=== PATIENT | female | born 1935 | race Hispanic/Latino ===

== ENCOUNTER 2017-04-18 18:46 | Inpatient (IN) | payer MEDICAID, MEDICARE ==
[2017-04-18 19:32] LABS: Eosinophils % (Auto) 1.1 % (0.0-4.3); Hematocrit 36.8 % (30.3-42.9); Hemoglobin 11.7 gm/dl (10.1-14.3); Mean Corpuscular HGB Conc 32 % (30-34); Mean Corpuscular Hemoglobin 26 pg (28-32); Mean Corpuscular Volume 83 fl (79-97); Platelet Count 466 K/mm3 (140-440); Red Blood Count 4.45 M/mm3 (3.65-5.03); Red Cell Distribution Width 18.6 % (13.2-15.2); White Blood Count 7.6 K/mm3 (4.5-11.0)
[2017-04-18 20:04] LABS: Anion Gap 20 mmol/L; BUN/Creatinine Ratio 20; Blood Urea Nitrogen 8 mg/dL (7-17); Calcium 9.5 mg/dL (8.4-10.2); Carbon Dioxide 27 mmol/L (22-30); Chloride 100.7 mmol/L (98-107); Glucose 114 mg/dL (65-100); Sodium 144 mmol/L (137-145)
[2017-04-18] MEDS ORDERED: ANTIVERT PO ONE (20:38)
--- NOTE | 2017-04-18 20:43 | Emergency Department Report ---
HPI - General Chief Complaint: Dizziness Time Seen by Provider: 04/18/17 20:30 - HPI HPI: Room 4 The patient is an 81-year-old female presenting with a chief complaint of dizziness. The patient states she came to the emergency department because her head has been "swimming" constantly for approximately one week. The patient states she falls down every time she attempts to get up. Patient lives with her son who is currently not present. Patient denies any history of headache, nausea/vomiting, fever or chest pain. When asked how she is feeling now the patient apply she feels "awful" because her head is "swimming." The patient has not had any previous episodes of same Location: Head Duration: 1 week Quality: Dizziness Severity: Moderate Modifying factors: Standing up leads to falling Context: [see above] Mode of transportation: [not driving] ED Past Medical Hx - Past Medical History Previous Medical History?: Yes Hx Hypertension: Yes - Surgical History Past Surgical History?: No - Family History Family history: no significant - Social History Smoking Status: Current Every Day Smoker Substance Use Type: None ED Review of Systems ROS: Stated complaint: DIZZY Other details as noted in HPI Comment: All other systems reviewed and negative Constitutional: denies: chills, fever Eyes: denies: eye pain, eye discharge, vision change ENT: denies: ear pain, throat pain Respiratory: denies: cough, shortness of breath, wheezing Cardiovascular: denies: chest pain, palpitations Endocrine: no symptoms reported Gastrointestinal: denies: abdominal pain, nausea, vomiting, diarrhea Genitourinary: denies: urgency, dysuria, discharge Musculoskeletal: denies: back pain, joint swelling, arthralgia Skin: denies: rash, lesions Neurological: vertigo. denies: headache Psychiatric: denies: anxiety, depression Hematological/Lymphatic: denies: easy bleeding, easy bruising Physical Exam - Physical Exam Vital Signs: Vital Signs 04/18/17 04/18/17 18:51 20:17 Temperature 98 F 97.8 F Pulse Rate 70 64 Respiratory 16 17 Rate Blood Pressure 202/85 Blood Pressure 124/105 [Left] O2 Sat by Pulse 96 97 Oximetry Physical Exam: GENERAL: The patient is well-developed well-nourished female lying on stretcher appearing to be in acute distress. [] HEENT: Normocephalic. Atraumatic. Extraocular motions are intact. Patient has moist mucous membranes. No nystagmus noted NECK: Supple. Trachea midline CHEST/LUNGS: Clear to auscultation. There is no respiratory distress noted. HEART/CARDIOVASCULAR: Regular. There is no tachycardia. There is no gallop rub or murmur. ABDOMEN: Abdomen is soft, nontender. Patient has normal bowel sounds. There is no abdominal distention. SKIN: There is no rash. There is no edema. There is no diaphoresis. NEURO: The patient is awake, alert, and oriented. The patient is cooperative. The patient has no focal neurologic deficits. The patient has normal speech. Cranial nerves II through XII grossly intact, no drift, genetics teacher are plus/5 bilaterally. Moves all extremities well MUSCULOSKELETAL: There is no evidence of acute injury. ED Course Vital Signs 04/18/17 04/18/17 18:51 20:17 Temperature 98 F 97.8 F Pulse Rate 70 64 Respiratory 16 17 Rate Blood Pressure 202/85 Blood Pressure 124/105 [Left] O2 Sat by Pulse 96 97 Oximetry - Reevaluation(s) Reevaluation #1: 04/18/17 22:28 Patient states she feels unchanged ED Medical Decision Making - Lab Data Result diagrams: 04/18/17 19:21 04/18/17 19:21 Laboratory Tests 04/18/17 04/18/17 19:21 19:21 WBC 7.6 RBC 4.45 Hgb 11.7 Hct 36.8 MCV 83 MCH 26 L MCHC 32 RDW 18.6 H Plt Count 466 H Lymph % (Auto) 16.1 [place] % (Auto) 9.6 H Eos % (Auto) 1.1 Baso % (Auto) 1.0 Lymph # 1.2 [place] # 0.7 Eos # 0.1 Baso # 0.1 Seg Neutrophils % 72.2 H Seg Neutrophils # 5.5 Sodium 144 Potassium 4.0 Chloride 100.7 Carbon Dioxide 27 Anion Gap 20 BUN 8 Creatinine 0.4 L Estimated GFR > 60 BUN/Creatinine Ratio 20 Glucose 114 H Calcium 9.5 Troponin T < 0.010 - EKG Data -: EKG Interpreted by [place] EKG shows normal: sinus rhythm Rate: normal - EKG Data When compared to previous EKG there are: previous EKG unavailable Interpretation: other (PACs) - Radiology Data Radiology results: report reviewed (CT head), image reviewed (chest x-ray, CT head) interpreted by me: Chest x-ray-no focal infiltrate, no pneumothorax CT head (rubber radiologist)-no acute intracranial pathology seen. Mild acute right mastoiditis - Differential Diagnosis vertigo, ICH, dehydration, Critical care attestation.: If time is entered above; I have spent that time in minutes in the direct care of this critically ill patient, excluding procedure time. ED Disposition Clinical Impression: Vertigo, Mastoiditis Disposition: OP ADMIT IP TO THIS HOSP Is pt being admited?: Yes Does the pt Need Aspirin: Yes Condition: Fair Referrals: PRIMARY CARE, [Primary Care Provider] - 3-5 Days Time of Disposition: 22:28 (hospitalist paged)
[2017-04-18] MEDS ORDERED: NACL 0.9% 500 ML 500 ML IV ONE (21:24)
--- NOTE | 2017-04-18 21:41 | Cat Scan Report ---
FINAL REPORT PROCEDURE: CT HEAD/BRAIN WO CON TECHNIQUE: Computerized tomography of the head was performed without contrast material. HISTORY: dizziness, falls COMPARISON: No prior studies are available for comparison. FINDINGS: Skull and scalp: Normal. Paranasal sinuses: Mild fluid right mastoid consistent with mild right mastoiditis Ventricles and subarachnoid spaces: Normal. Cerebrum: No evidence of hemorrhage, acute infarction or mass . Cerebellum and brainstem: No evidence of hemorrhage, acute infarction or mass. Vasculature: Atherosclerosis Comments: Moderate diffuse atrophy with mild periventricular microischemic change and central lacunar infarct disease. Basal ganglia microcalcifications basal ganglia IMPRESSION: No acute intracranial pathology seen. Mild acute right mastoiditis
[2017-04-18] MEDS ORDERED: ASPIRIN PO ONE (22:29)
[2017-04-18] MEDS ORDERED: REGLAN PO PRN ×2 (23:05→23:32)
[2017-04-18] MEDS ORDERED: PHENERGAN PR PRN (23:05)
[2017-04-18] MEDS ORDERED: MILK OF MAGNESIA PO PRN (23:05)
[2017-04-18] MEDS ORDERED: TYLENOL PO PRN (23:05)
[2017-04-18] MEDS ORDERED: ZOFRAN IV PRN (23:05)
[2017-04-18] MEDS ORDERED: SODIUM CHLORIDE FLUSH SYRINGE 10 ML IV PRN (23:05)
[2017-04-18] MEDS ORDERED: DULCOLAX PR PRN (23:05)
--- NOTE | 2017-04-18 23:21 | History and Physical Report ---
History of Present Illness Date of examination: 04/18/17 Chief complaint: Dizziness History of present illness: 81-year-old female with past medical history significant for emphysema , hypertension, hypothyroidism presented to the emergency department complaining of her head is swimming for the last 2 weeks. For the last 4 days every time when she tried to walk she fell down. Whenever she would stand up she feels dizzy. She denied loss of consciousness. Didn't hit her head when she fell. Patient denied headache, seizure, focal weakness. In denied any difficulty of swallowing. REVIEW OF SYSTEMS: GENERAL: no weight change, no fatigue, no fever HEAD: no head ache EYES: no blurry vision, no acute visual loss EARS: no hearing loss, no discharge, no earache NOSE: no stuffiness, no sneezing, no discharge MOUTH, THROAT AND NECK: no bleeding gums, no sore throat, no swollen neck CARDIAC: no palpitations, no dyspnea on exertion, no orthopnea, no PND, no edema , no chest pain RESPIRATORY: no shortness of breath, no wheeze, no cough, no sputum, no hemoptysis, no asthma GI: no decreased appetite, no nausea, no vomiting, no dysphagia, no diarrhea, no constipation, no abdominal pain URINARY: no change in frequency, no urgency, no polyuria, no hematuria, no incontinence MUSCULOSKELETAL: no muscle weakness, no pain, no joint stiffness NEUROLOGIC: no loss of sensation/numbness, no tingling, no tremors HEMATOLOGIC: no anemia, no easy bruising SKIN: no rashes ENDOCRINE: no heat/cold intolerance, no polyuria, no polydipsia, no diabetes PSYCHIATRIC: no anxiety, no depression, no suicidal ideations Past History Past Medical History: hypertension, hypothyroidism Past Surgical History: No surgical history Social history: smoking (half pack per day), full code. denies: alcohol abuse, prescription drug abuse, IV drug use Family history: no significant family history Medications and Allergies Allergies Allergy/AdvReac Type Severity Reaction Status Date / Time No Known Allergies Allergy Verified 04/18/17 23:13 Home Medications Medication Instructions Recorded Confirmed Last Taken Type Amlodipine Besylate [Norvasc] 5 mg PO DAILY 04/18/17 04/18/17 Unknown History Levothyroxine [Synthroid] 25 mcg PO QAM 04/18/17 04/18/17 Unknown History Losartan Potassium 100 mg PO DAILY 04/18/17 04/18/17 Unknown History Active Meds: Active Medications Acetaminophen (Tylenol) 650 mg PO Q4H PRN PRN Reason: Pain, Mild (1-3) Albuterol/Ipratropium (Duoneb *Not For Prn Use*) 1 ampul IH Q6HRT [facility] Amlodipine Besylate (Norvasc) 5 mg PO DAILY [place] Bisacodyl (Dulcolax) 10 mg [place] QDAY PRN PRN Reason: Constipation Docusate Sodium (Colace) 100 mg PO BID [facility] Famotidine (Pepcid) 10 mg PO BID [facility] Heparin Sodium (Porcine) (Heparin) 5,000 unit SUB-Q Q8HR [place] Levothyroxine Sodium (Synthroid) 25 mcg PO QAM [place] Magnesium Hydroxide (Milk Of Magnesia) 30 ml PO Q4H PRN PRN Reason: Constipation Metoclopramide HCl (Reglan) 10 mg PO Q6H PRN PRN Reason: Nausea And Vomiting Miscellaneous Medication (Losartan Potassium [Losartan Potassium]) 100 mg PO DAILY [facility] Ondansetron HCl (Zofran) 4 mg IV Q8H PRN PRN Reason: N/V unrelieved by Reglan Promethazine HCl (Phenergan) 25 mg [place] Q6H PRN PRN Reason: Nausea And Vomiting Simvastatin (Zocor) 20 mg PO QHS [facility] Sodium Chloride (Sodium Chloride Flush Syringe 10 Ml) 10 ml INJ PRN PRN PRN Reason: LINE FLUSH Exam - Physical Exam Narrative exam: Not in cardiopulmonary distress. The patient appeared emaciated. Vital signs as documented. Head exam is unremarkable. No scleral icterus . Neck is without jugular venous distension, thyromegaly, or carotid bruits. Lungs are clear to auscultation. Cardiac exam reveals regular rate and Rhythm. First and second heart sounds normal. No murmurs, rubs or gallops. Abdominal exam reveals normal bowel sounds, no masses, no organomegaly and no aortic enlargement. Extremities are nonedematous and both femoral and pedal pulses are normal. CUSTOMER EXPERIENCE SPECIALIST: Alert and oriented 3. No focal weakness. - Constitutional Vitals: Temp Pulse Resp BP Pulse Ox 97.8 F 99 H 17 139/83 96 04/18/17 20:17 04/18/17 21:00 04/18/17 20:17 04/18/17 22:00 04/18/17 22:00 Results - Labs CBC & Chem 7: 04/18/17 19:21 04/18/17 19:21 Labs: Laboratory Last Values WBC 7.6 K/mm3 (4.5-11.0) 04/18/17 19:21 RBC 4.45 M/mm3 (3.65-5.03) 04/18/17 19:21 Hgb 11.7 gm/dl (10.1-14.3) 04/18/17 19:21 Hct 36.8 % (30.3-42.9) 04/18/17 19:21 MCV 83 fl (79-97) 04/18/17 19:21 MCH 26 pg (28-32) L 04/18/17 19:21 MCHC 32 % (30-34) 04/18/17 19:21 RDW 18.6 % (13.2-15.2) H 04/18/17 19:21 Plt Count 466 K/mm3 (140-440) H 04/18/17 19:21 Lymph % (Auto) 16.1 % (13.4-35.0) 04/18/17 19:21 [place] % (Auto) 9.6 % (0.0-7.3) H 04/18/17 19:21 Eos % (Auto) 1.1 % (0.0-4.3) 04/18/17 19:21 Baso % (Auto) 1.0 % (0.0-1.8) 04/18/17 19:21 Lymph # 1.2 K/mm3 (1.2-5.4) 04/18/17 19:21 Emanuel # 0.7 K/mm3 (0.0-0.8) 04/18/17 19:21 Eos # 0.1 K/mm3 (0.0-0.4) 04/18/17 19:21 Baso # 0.1 K/mm3 (0.0-0.1) 04/18/17 19:21 Seg Neutrophils % 72.2 % (40.0-70.0) H 04/18/17 19:21 Seg Neutrophils # 5.5 K/mm3 (1.8-7.7) 04/18/17 19:21 Sodium 144 mmol/L (137-145) 04/18/17 19:21 Potassium 4.0 mmol/L (3.6-5.0) 04/18/17 19:21 Chloride 100.7 mmol/L (98-107) 04/18/17 19:21 Carbon Dioxide 27 mmol/L (22-30) 04/18/17 19:21 Anion Gap 20 mmol/L 04/18/17 19:21 BUN 8 mg/dL (7-17) 04/18/17 19:21 Creatinine 0.4 mg/dL (0.7-1.2) L 04/18/17 19:21 Estimated GFR > 60 ml/min 04/18/17 19:21 BUN/Creatinine Ratio 20 % 04/18/17 19:21 Glucose 114 mg/dL (65-100) H 04/18/17 19:21 Calcium 9.5 mg/dL (8.4-10.2) 04/18/17 19:21 Troponin T < 0.010 ng/mL (0.00-0.029) 04/18/17 19:21 - Imaging and Cardiology CT Scan - head: report reviewed (mastoididtis) Assessment and Plan - Patient Problems (1) CVA (cerebral vascular accident) Current Visit: Yes Status: Suspected Qualifiers: CVA mechanism: C Laterality of affected vessel: unspecified Plan to address problem: Patient has vertigo and frequent fall CVA is possiblity and severe workup is placed Patient is on aspirin and statin (2) Generalized weakness Current Visit: Yes Status: Acute Plan to address problem: PT/ OT consulted (3) Malnutrition Current Visit: Yes Status: Acute Qualifiers: Malnutrition type: M Protein-calorie malnutrition severity: P Plan to address problem: Nutrition consult placed (4) Hypertension Current Visit: Yes Status: Acute Qualifiers: Hypertension type: H Plan to address problem: Resume home medications (5) Mastoiditis Current Visit: Yes Status: Acute Qualifiers: Laterality: L Plan to address problem: Supportive care (6) Vertigo Current Visit: Yes Status: Acute Plan to address problem: Meclizine PT (7) DVT prophylaxis Current Visit: Yes Status: Acute Plan to address problem: heparin (8) Emphysema of lung Current Visit: Yes Status: Chronic Qualifiers: Emphysema type: E Plan to address problem: Breathing treatment albuterol (9) Smoking 1/2 pack a day or less Current Visit: Yes Status: Acute Plan to address problem: Counselled about cessation >10 minutes
[2017-04-19] MEDS ORDERED: DUONEB *Not for PRN Use IH ONE (02:26)
[2017-04-19] MEDS: DUONEB *Not for PRN Use IH SCH ×5 (02:35→20:15)
[2017-04-19 04:50] LABS: Basophils % (Auto) 1.1 % (0.0-1.8); Eosinophils % (Auto) 1.7 % (0.0-4.3); Hematocrit 33.7 % (30.3-42.9); Hemoglobin 10.7 gm/dl (10.1-14.3); Mean Corpuscular HGB Conc 32 % (30-34); Mean Corpuscular Volume 81 fl (79-97); Platelet Count 419 K/mm3 (140-440); Red Blood Count 4.15 M/mm3 (3.65-5.03); Red Cell Distribution Width 18.5 % (13.2-15.2); White Blood Count 6.2 K/mm3 (4.5-11.0)
[2017-04-19 04:53] LABS: Mean Corpuscular Hemoglobin 26 pg (28-32)
[2017-04-19 05:16] LABS: Anion Gap 16 mmol/L; BUN/Creatinine Ratio 12; Blood Urea Nitrogen 6 mg/dL (7-17); Calcium 9.1 mg/dL (8.4-10.2); Carbon Dioxide 29 mmol/L (22-30); Chloride 102.4 mmol/L (98-107); Cholesterol 156 mg/dL (50-199); Glucose 97 mg/dL (65-100); HDL Cholesterol 42 mg/dL (40-59); LDL Cholesterol,Direct 81 mg/dL (50-130); Potassium 3.9 mmol/L (3.6-5.0); Sodium 143 mmol/L (137-145); Triglycerides 167 mg/dL (2-149)
[2017-04-19] MEDS ORDERED: HEPARIN ONE (06:32)
[2017-04-19] MEDS: HEPARIN SUB-Q SCH ×3 (06:40→22:36)
[2017-04-19] MEDS: SYNTHROID PO SCH (06:50)
--- NOTE | 2017-04-19 08:59 | XRay Report ---
CHEST 2 VIEWS INDICATION: Shortness of breath. COMPARISON: None similar at this institution. FINDINGS: PA and lateral chest radiographs demonstrate normal heart size. Moderate aortic atherosclerotic calcifications with prominent aortic knob, not entirely excluded subtle aneurysmal/pseudoaneurysmal. Approximately 6 cm hiatal hernia. Clear lungs without pleural effusions or CHF. Demineralized bones with mild to moderate S-shaped thoracolumbar scoliosis. Left humeral head axillary degenerative spur as well. CONCLUSION: Clear lungs with various other findings, including hiatal hernia, scoliosis and aortic knob radiographic appearance, as detailed above. Please also correlate clinically, with prior chest imaging if available, or further with contrasted chest CT, as appropriate. Thank you for the opportunity to participate in this patient's care.
[2017-04-19] MEDS ORDERED: NON-FORMULARY (Losartan Potassium [Losartan Potassium] 100 MG) PO SCH (10:00)
[2017-04-19] MEDS: NORVASC PO SCH (10:14)
[2017-04-19] MEDS: COLACE PO SCH ×2 (10:15→22:36)
[2017-04-19] MEDS: COZAAR PO SCH (10:54)
[2017-04-19] MEDS: PEPCID PO SCH ×2 (11:23→22:36)
--- NOTE | 2017-04-19 16:15 | Progress Note ---
Assessment and Plan (1) CVA (cerebral vascular accident) ASA, Statin, PT/OT. Neurocheck (2) Generalized weakness PT/ OT consulted (3) Malnutrition Nutrition consult placed (4) Hypertension Resume home medications (5) Mastoiditis Current Visit: Yes Status: Acute Qualifiers: Laterality: L Plan to address problem: Supportive care (6) Vertigo Meclizine PT (7) DVT prophylaxis heparin (8) Emphysema of lung Breathing treatment albuterol (9) Smoking 1/2 pack a day or less Counselled about cessation >10 minutes Subjective Date of service: 04/19/17 Principal diagnosis: generalized weakness, shortness of breath, malnutrition, vertigo Interval history: Patient is seen and examined. Laying in bed in no DISTRESS. Objective - Exam Narrative Exam: GEN: Well-developed well-nourished. ill-appearing HEENT: NC/AT, PERRL. No rhionorrhea NECK: Supple, no adenopathy, no thyromegaly, no JVD CVS/HEART: RRR, S1S2 normal. No R/M/G. Pulses present bilaterally CHEST/LUNGS: Symmetrical chest expansion, good air entry bilaterally, CTA Wero GI/Abdomen: Soft, NTND, good bowel sounds, no guarding or rebound /Bladder: No suprapubic tenderness, no CVA EXT: No c/c/e Skin: No obvious rash MSK: Spontaneous movement x 4 Neuro: A & O x 3. None focal seen moving all limbs Psych: Calm. No SI or HI - Constitutional Vitals: Vital Signs - 12hr 04/19/17 04/19/17 04/19/17 05:00 06:00 07:00 Temperature Pulse Rate 48 L 50 L 50 L Pulse Rate [ Anterior Bilateral Throughout] Respiratory 25 H 24 17 Rate Respiratory Rate [Anterior Bilateral Throughout] Blood Pressure 128/64 128/64 145/72 O2 Sat by Pulse 95 93 98 Oximetry 04/19/17 04/19/17 04/19/17 08:00 09:00 09:15 Temperature Pulse Rate 67 65 Pulse Rate [ 62 Anterior Bilateral Throughout] Respiratory 25 H 19 Rate Respiratory 20 Rate [Anterior Bilateral Throughout] Blood Pressure 138/80 111/81 O2 Sat by Pulse 95 96 Oximetry 04/19/17 04/19/17 04/19/17 09:25 10:00 10:14 Temperature Pulse Rate 54 L 60 Pulse Rate [ 62 Anterior Bilateral Throughout] Respiratory 26 H Rate Respiratory 18 Rate [Anterior Bilateral Throughout] Blood Pressure 152/70 152/70 O2 Sat by Pulse 97 Oximetry 04/19/17 04/19/17 04/19/17 10:54 11:00 11:40 Temperature Pulse Rate 60 64 66 Pulse Rate [ Anterior Bilateral Throughout] Respiratory 26 H 20 Rate Respiratory Rate [Anterior Bilateral Throughout] Blood Pressure 150/70 170/84 160/89 O2 Sat by Pulse Oximetry 04/19/17 04/19/17 04/19/17 12:59 13:38 13:48 Temperature 98.1 F Pulse Rate 63 Pulse Rate [ 60 72 Anterior Bilateral Throughout] Respiratory 18 Rate Respiratory 16 18 Rate [Anterior Bilateral Throughout] Blood Pressure 142/58 O2 Sat by Pulse 96 Oximetry General appearance: Present: no acute distress, well-nourished - EENT Eyes: PERRL, EOM intact - Neck Neck: supple, normal ROM - Respiratory Respiratory effort: normal Respiratory: bilateral: diminished - Cardiovascular Rhythm: regular Heart Sounds: Present: S1 & S2. Absent: gallop, rub Extremities: pulses intact, No edema, normal color, Full ROM - Gastrointestinal General gastrointestinal: Present: soft, non-tender, non-distended, normal bowel sounds - Integumentary Integumentary: clear, warm, dry - Musculoskeletal Musculoskeletal: 1, strength equal bilaterally - Neurologic Neurologic: moves all extremities - Psychiatric Psychiatric: memory intact, appropriate mood/affect, intact judgment & insight - Labs CBC & Chem 7: 04/19/17 04:35 04/19/17 04:35 Labs: Abnormal lab results 04/19/17 04/19/17 Range/Units 04:35 04:35 MCH 26 L (28-32) pg RDW 18.5 H (13.2-15.2) % [place] % (Auto) 11.3 H (0.0-7.3) % BUN 6 L (7-17) mg/dL Creatinine 0.5 L (0.7-1.2) mg/dL Triglycerides 167 H (2-149) mg/dL
--- NOTE | 2017-04-19 16:44 | Consultation ---
History of Present Illness - Reason for Consult Consult date: 04/19/17 STROKE - History of Present Illness SUSPECT THE BASIS OF THE VERTIGO IS SMALL LACUNAR STROKE DOUBT THE MASTOIDITIS IS BACTERIAL AND NOT LIKELY ACUTE INFECTION I SPOKE WITH DR. Lowe as we are making rounds recommend MRI AND GET PT TO SEE Past History Past Medical History: hypertension, hypothyroidism Past Surgical History: No surgical history Social history: smoking (half pack per day), full code. denies: alcohol abuse, prescription drug abuse, IV drug use Family history: no significant family history Medications and Allergies Allergies Allergy/AdvReac Type Severity Reaction Status Date / Time No Known Allergies Allergy Verified 04/18/17 23:13 Home Medications Medication Instructions Recorded Confirmed Last Taken Type Amlodipine Besylate [Norvasc] 5 mg PO DAILY 04/18/17 04/18/17 Unknown History Levothyroxine [Synthroid] 25 mcg PO QAM 04/18/17 04/18/17 Unknown History Losartan Potassium 100 mg PO DAILY 04/18/17 04/18/17 Unknown History Active Meds: Active Medications Acetaminophen (Tylenol) 650 mg PO Q4H PRN PRN Reason: Pain, Mild (1-3) Albuterol/Ipratropium (Duoneb *Not For Prn Use*) 1 ampul IH Q6HRT [facility] Last Admin: 04/19/17 13:38 Dose: 1 ampul Amlodipine Besylate (Norvasc) 5 mg PO DAILY [facility] Last Admin: 04/19/17 10:14 Dose: 5 mg Bisacodyl (Dulcolax) 10 mg [place] QDAY PRN PRN Reason: Constipation Docusate Sodium (Colace) 100 mg PO BID [facility] Last Admin: 04/19/17 10:15 Dose: 100 mg Famotidine (Pepcid) 10 mg PO BID [facility] Last Admin: 04/19/17 11:23 Dose: 10 mg Heparin Sodium (Porcine) (Heparin) 5,000 unit SUB-Q Q8HR [facility] Last Admin: 04/19/17 14:30 Dose: 5,000 unit Influenza Virus Vaccine Quadrival (Fluarix Quad [id number](36 Mos+)) 0.5 ml IM .ONCE ONE Stop: 04/20/17 12:01 Levothyroxine Sodium (Synthroid) 25 mcg PO QAM@0600 [facility] Last Admin: 04/19/17 06:50 Dose: 25 mcg Losartan Potassium (Cozaar) 100 mg PO QDAY [facility] Last Admin: 04/19/17 10:54 Dose: 100 mg Magnesium Hydroxide (Milk Of Magnesia) 30 ml PO Q4H PRN PRN Reason: Constipation Metoclopramide HCl (Reglan) 5 mg PO Q6H PRN PRN Reason: Nausea And Vomiting Ondansetron HCl (Zofran) 4 mg IV Q8H PRN PRN Reason: N/V unrelieved by Reglan Pneumococcal Polyvalent Vaccine (Pneumovax 23) 0.5 ml IM .ONCE ONE Stop: 04/20/17 12:01 Promethazine HCl (Phenergan) 25 mg [place] Q6H PRN PRN Reason: Nausea And Vomiting Simvastatin (Zocor) 20 mg PO QHS [facility] Sodium Chloride (Sodium Chloride Flush Syringe 10 Ml) 10 ml IV PRN PRN PRN Reason: LINE FLUSH Exam - Constitutional Vitals: Temp Pulse Resp BP Pulse Ox 98.1 F 72 18 142/58 96 04/19/17 12:59 04/19/17 13:48 04/19/17 13:48 04/19/17 12:59 04/19/17 12:59 Results - Labs CBC & Chem 7: 04/19/17 04:35 04/19/17 04:35 Labs: Abnormal lab results 04/19/17 04/19/17 Range/Units 04:35 04:35 MCH 26 L (28-32) pg RDW 18.5 H (13.2-15.2) % [place] % (Auto) 11.3 H (0.0-7.3) % BUN 6 L (7-17) mg/dL Creatinine 0.5 L (0.7-1.2) mg/dL Triglycerides 167 H (2-149) mg/dL
[2017-04-19] MEDS: ZOCOR PO SCH (22:36)
[2017-04-20] MEDS: DUONEB *Not for PRN Use IH SCH ×4 (02:08→19:24)
--- NOTE | 2017-04-20 05:19 | Consultation ---
HISTORY OF PRESENT ILLNESS: This is an 81-year-old female who is admitted to [facility] via the Emergency Room where she presented with a complaint of dizziness. Stated that she has swimmy sensation in her head, was falling down over time she stood up, so was unable to take care of her. She presents with a history of ____. Denied any hiccups, nausea, vomiting. The patient had no previous symptoms of being dizzy like this in the past. Her blood pressure was markedly elevated on admission up to 202/82. She had vertigo and mastoiditis. The patient's hematocrit was 36.8, glucose is 114, which was elevated. His sodium was 144. Since admission, the patient continues to complain of headaches, dizziness, and nausea. She states she has not felt this way before. I reviewed her CT scan of the head, which shows no intracranial pathology. She has a central lacunar infarct, marked ischemic changes in bilateral basal ganglia. Also mild fluid level in the right mastoid consisted with right mastoiditis. 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 IMPRESSION: Acute vertigo with evidence of possible mastoiditis. RECOMMENDATION: Will speak to Dr. Casanova about CT scan findings. We recommend getting a sedimentation rate and MRI scan of brain. JOB# [id number] MADDIE/NTS
[2017-04-20] MEDS: SYNTHROID PO SCH (06:25)
[2017-04-20] MEDS: HEPARIN SUB-Q SCH ×3 (06:26→21:51)
[2017-04-20] MEDS: COZAAR PO SCH (10:22)
[2017-04-20] MEDS: NORVASC PO SCH (10:24)
[2017-04-20] MEDS: COLACE PO SCH ×2 (10:24→21:50)
--- NOTE | 2017-04-20 11:48 | Magnetic Resonance Report ---
MRA HEAD WITHOUT CONTRAST INDICATION: Stroke. COMPARISON: 04/18/[address] FINDINGS: MRA of the head performed without intravenous contrast and demonstrates no evidence of flow-limiting stenosis, occlusion or vascular malformation. Approximately 5 mm left vertebral artery length distally appears somewhat prominent/dilated upto approximately 4 mm caliber before joining the right vertebral artery to form the basilar. Bilateral vertebral artery atherosclerotic calcifications with otherwise grossly normal CT appearance also noted previously. Please note that detection of aneurysms less than 5 mm is limited on this exam. CONCLUSION: Patent [place] of [place], as detailed above. Thank you for the opportunity to participate in this patient's care.
--- NOTE | 2017-04-20 11:48 | Magnetic Resonance Report ---
MRI BRAIN WITHOUT CONTRAST INDICATION: Stroke. COMPARISON: 04/18/[address] FINDINGS: Noncontrast multiplanar and multisequence MRI of the brain demonstrates approximately 9 mm periventricular focus of restricted diffusion in the left frontotemporal deep white matter, diffusion image 23. No other acute infarct, hemorrhage, mass effect or midline shift, though exam limited due to motion artifact. Symmetric, age-appropriate ventricles and sulci with mild periventricular and few white matter FLAIR and T2-weighted hyperintensities. No abnormal extra-axial masses or fluid collections. Normal major intracranial vascular flow voids. Normal posterior fossa with preserved basilar cisterns. Grossly normal eye globes. Mild right sphenoid sinusitis and right mastoiditis may again be noted. Grossly clear remainder imaged paranasal sinuses and left mastoid air cells. Normal midline structures without evidence of Chiari malformation. Jaw appears edentulous. CONCLUSION: 1. Approximately 9 mm left temporoparietal periventricular deep white matter acute infarct, as described. 2. Other findings, including age-appropriate atrophy, microvascular changes, mild sinusitis and right mastoiditis. Thank you for the opportunity to participate in this patient's care.
[2017-04-20] MEDS ORDERED: PNEUMOVAX 23 IM ONE (12:00)
[2017-04-20] MEDS ORDERED: Fluarix Quad 2017-2018(36 MOS+) IM ONE (12:00)
--- NOTE | 2017-04-20 14:19 | Progress Note ---
Assessment and Plan Assessment and plan: Pt is a 81 yo woman with a history of copd, hypertension, hypothyroidism and tobacco dependancy who presents with dizziness. CXR read as clear lungs, CT head showed no acute intracranial finding, mild acute right mastoiditis, TTE read as estimated EF 55-60%, diastolic dysfunction, mild mr, mild pulmonary hypertension. MRA of the brain read as patent [place], MRI of the brain read as approximate 9 mm left temporoparietal periventricular deep white matter acute infarct, age appropriate atrophy, microvascular changes, mild right sphenoid sinusitis and right mastoiditis. Patient was seen by neurology. PCP is Dr. Malathi Narayanan -Acute ischemic cerebral infarct: Treat with aspirin, statins and physical therapy -Accelerated hypertension: Low-salt diet and when necessary antihypertensive -Suspected moderate malnutrition, BMI 18: Consult dietitian -Tobacco dependency: Change Room Attendant stopping Full code Disposition: Continue inpatient care, possible placement or discharged tomorrow History Interval history: Patient was seen and examined. Follow-up on current diagnosis/dizziness which is improved. Overnight uneventful. Patient denies any chest pain, shortness breath, nausea/vomiting or severe headaches. Imaging, nursing note, chart, labs and old chart reviewed. Discussed with patient. 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, no dysmetria Neuro: CN 2-12 grossly intact, no new focal deficits Psych: calm - Constitutional Vitals: Temp Pulse Resp BP Pulse Ox 98.0 F 82 18 136/69 94 04/20/17 12:24 04/20/17 09:10 04/20/17 12:24 04/20/17 12:24 04/20/17 07:31 Results - Labs CBC & Chem 7: 04/19/17 04:35 04/19/17 04:35 Labs: Laboratory Last Values WBC 6.2 K/mm3 (4.5-11.0) 04/19/17 04:35 RBC 4.15 M/mm3 (3.65-5.03) 04/19/17 04:35 Hgb 10.7 gm/dl (10.1-14.3) 04/19/17 04:35 Hct 33.7 % (30.3-42.9) 04/19/17 04:35 MCV 81 fl (79-97) 04/19/17 04:35 MCH 26 pg (28-32) L 04/19/17 04:35 MCHC 32 % (30-34) 04/19/17 04:35 RDW 18.5 % (13.2-15.2) H 04/19/17 04:35 Plt Count 419 K/mm3 (140-440) 04/19/17 04:35 Lymph % (Auto) 22.0 % (13.4-35.0) 04/19/17 04:35 [place] % (Auto) 11.3 % (0.0-7.3) H 04/19/17 04:35 Eos % (Auto) 1.7 % (0.0-4.3) 04/19/17 04:35 Baso % (Auto) 1.1 % (0.0-1.8) 04/19/17 04:35 Lymph # 1.4 K/mm3 (1.2-5.4) 04/19/17 04:35 [place] # 0.7 K/mm3 (0.0-0.8) 04/19/17 04:35 Eos # 0.1 K/mm3 (0.0-0.4) 04/19/17 04:35 Baso # 0.1 K/mm3 (0.0-0.1) 04/19/17 04:35 Seg Neutrophils % 63.9 % (40.0-70.0) 04/19/17 04:35 Seg Neutrophils # 3.9 K/mm3 (1.8-7.7) 04/19/17 04:35 Sodium 143 mmol/L (137-145) 04/19/17 04:35 Potassium 3.9 mmol/L (3.6-5.0) 04/19/17 04:35 Chloride 102.4 mmol/L (98-107) 04/19/17 04:35 Carbon Dioxide 29 mmol/L (22-30) 04/19/17 04:35 Anion Gap 16 mmol/L 04/19/17 04:35 BUN 6 mg/dL (7-17) L 04/19/17 04:35 Creatinine 0.5 mg/dL (0.7-1.2) L 04/19/17 04:35 Estimated GFR > 60 ml/min 04/19/17 04:35 BUN/Creatinine Ratio 12 % 04/19/17 04:35 Glucose 97 mg/dL (65-100) 04/19/17 04:35 Calcium 9.1 mg/dL (8.4-10.2) 04/19/17 04:35 Troponin T < 0.010 ng/mL (0.00-0.029) 04/18/17 19:21 Triglycerides 167 mg/dL (2-149) H 04/19/17 04:35 Cholesterol 156 mg/dL (50-199) 04/19/17 04:35 LDL Cholesterol Direct 81 mg/dL (50-130) 04/19/17 04:35 HDL Cholesterol 42 mg/dL (40-59) 04/19/17 04:35 Cholesterol/HDL Ratio 3.71 % 04/19/17 04:35
[2017-04-20] MEDS: ZOCOR PO SCH (21:50)
[2017-04-20] MEDS: PEPCID PO SCH (21:51)
[2017-04-21] MEDS: DUONEB *Not for PRN Use IH SCH ×4 (01:24→19:36)
[2017-04-21] MEDS: HEPARIN SUB-Q SCH ×3 (05:53→21:40)
[2017-04-21] MEDS: SYNTHROID PO SCH (05:54)
[2017-04-21] MEDS ORDERED: TYLENOL PO PRN (07:08)
[2017-04-21] MEDS: ROCEPHIN/NS 1 GM/50 ML 1 GM/50 ML BAG IV SCH (10:36)
[2017-04-21] MEDS: PEPCID PO SCH ×2 (10:37→21:40)
[2017-04-21] MEDS: COLACE PO SCH ×2 (10:37→21:39)
[2017-04-21] MEDS: NORVASC PO SCH (10:38)
[2017-04-21] MEDS: COZAAR PO SCH (10:39)
--- NOTE | 2017-04-21 11:45 | Progress Note ---
Assessment and Plan Assessment and plan: Pt is a 81 yo woman with a history of copd, hypertension, hypothyroidism and tobacco dependancy who presents with dizziness. CXR read as clear lungs, CT head showed no acute intracranial finding, mild acute right mastoiditis, TTE read as estimated EF 55-60%, diastolic dysfunction, mild mr, mild pulmonary hypertension. MRA of the brain read as patent [place], MRI of the brain read as approximate 9 mm left temporoparietal periventricular deep white matter acute infarct, age appropriate atrophy, microvascular changes, mild right sphenoid sinusitis and right mastoiditis. Patient was seen by neurology. PCP is Dr. 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 Follow-up on current diagnosis/dizziness which is improved. Overnight uneventful. Patient denies any chest pain, shortness breath, nausea/vomiting or severe headaches. Imaging, nursing note, chart, labs and old chart reviewed. Discussed with patient. 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, no dysmetria Neuro: CN 2-12 grossly intact, no new focal deficits Psych: calm - Constitutional Vitals: Temp Pulse Resp BP Pulse Ox 99.2 F 79 18 140/68 92 04/21/17 08:01 04/21/17 10:39 04/21/17 08:58 04/21/17 10:39 10/21/17 08:01 Results - Labs CBC & Chem 7: 04/19/17 04:35 04/19/17 04:35 Labs: Laboratory Last Values WBC 6.2 K/mm3 (4.5-11.0) 04/19/17 04:35 RBC 4.15 M/mm3 (3.65-5.03) 04/19/17 04:35 Hgb 10.7 gm/dl (10.1-14.3) 04/19/17 04:35 Hct 33.7 % (30.3-42.9) 04/19/17 04:35 MCV 81 fl (79-97) 04/19/17 04:35 MCH 26 pg (28-32) L 04/19/17 04:35 MCHC 32 % (30-34) 04/19/17 04:35 RDW 18.5 % (13.2-15.2) H 04/19/17 04:35 Plt Count 419 K/mm3 (140-440) 04/19/17 04:35 Lymph % (Auto) 22.0 % (13.4-35.0) 04/19/17 04:35 [place] % (Auto) 11.3 % (0.0-7.3) H 04/19/17 04:35 Eos % (Auto) 1.7 % (0.0-4.3) 04/19/17 04:35 Baso % (Auto) 1.1 % (0.0-1.8) 04/19/17 04:35 Lymph # 1.4 K/mm3 (1.2-5.4) 04/19/17 04:35 [place] # 0.7 K/mm3 (0.0-0.8) 04/19/17 04:35 Eos # 0.1 K/mm3 (0.0-0.4) 04/19/17 04:35 Baso # 0.1 K/mm3 (0.0-0.1) 04/19/17 04:35 Seg Neutrophils % 63.9 % (40.0-70.0) 04/19/17 04:35 Seg Neutrophils # 3.9 K/mm3 (1.8-7.7) 04/19/17 04:35 Sodium 143 mmol/L (137-145) 04/19/17 04:35 Potassium 3.9 mmol/L (3.6-5.0) 04/19/17 04:35 Chloride 102.4 mmol/L (98-107) 04/19/17 04:35 Carbon Dioxide 29 mmol/L (22-30) 04/19/17 04:35 Anion Gap 16 mmol/L 04/19/17 04:35 BUN 6 mg/dL (7-17) L 04/19/17 04:35 Creatinine 0.5 mg/dL (0.7-1.2) L 04/19/17 04:35 Estimated GFR > 60 ml/min 04/19/17 04:35 BUN/Creatinine Ratio 12 % 04/19/17 04:35 Glucose 97 mg/dL (65-100) 04/19/17 04:35 Calcium 9.1 mg/dL (8.4-10.2) 04/19/17 04:35 Troponin T < 0.010 ng/mL (0.00-0.029) 04/18/17 19:21 Triglycerides 167 mg/dL (2-149) H 04/19/17 04:35 Cholesterol 156 mg/dL (50-199) 04/19/17 04:35 LDL Cholesterol Direct 81 mg/dL (50-130) 04/19/17 04:35 HDL Cholesterol 42 mg/dL (40-59) 04/19/17 04:35 Cholesterol/HDL Ratio 3.71 % 04/19/17 04:35
--- NOTE | 2017-04-21 11:55 | Consultation ---
History of Present Illness - Reason for Consult Consult date: 04/21/17 stroke - History of Present Illness the MRI and MRA were reviewed and there is acute left fronto parietal infarct likely small vessel disease this explains the period of not being responsive and the aphasia .... likely will need short term rehab I reviewed the MRI and it does not show evidence of mastoiditis of bacterial type vertigo is caused by the stroke not the sinus question Past History Past Medical History: hypertension, hypothyroidism Past Surgical History: No surgical history Social history: smoking (half pack per day), full code. denies: alcohol abuse, prescription drug abuse, IV drug use Family history: no significant family history Medications and Allergies Allergies Allergy/AdvReac Type Severity Reaction Status Date / Time No Known Allergies Allergy Verified 04/18/17 23:13 Home Medications Medication Instructions Recorded Confirmed Last Taken Type Amlodipine Besylate [Norvasc] 5 mg PO DAILY 04/18/17 04/18/17 Unknown History Levothyroxine [Synthroid] 25 mcg PO QAM 04/18/17 04/18/17 Unknown History Losartan Potassium 100 mg PO DAILY 04/18/17 04/18/17 Unknown History Active Meds: Active Medications Acetaminophen (Tylenol) 325 mg PO Q6H PRN PRN Reason: Pain, Mild (1-3) Albuterol/Ipratropium (Duoneb *Not For Prn Use*) 1 ampul IH Q6HRT [facility] Last Admin: 04/21/17 08:56 Dose: 1 ampul Amlodipine Besylate (Norvasc) 5 mg PO DAILY [facility] Last Admin: 04/21/17 10:38 Dose: 5 mg Bisacodyl (Dulcolax) 10 mg [place] QDAY PRN PRN Reason: Constipation Docusate Sodium (Colace) 100 mg PO BID [facility] Last Admin: 04/21/17 10:37 Dose: 100 mg Famotidine (Pepcid) 10 mg PO BID [facility] Last Admin: 04/21/17 10:37 Dose: 10 mg Heparin Sodium (Porcine) (Heparin) 5,000 unit SUB-Q Q8HR [facility] Last Admin: 04/21/17 05:53 Dose: 5,000 unit Ceftriaxone Sodium (Rocephin/Ns 1 Gm/50 Ml) 1 gm in 50 mls @ 100 mls/hr IV Q24HR [facility] PRN Reason: Protocol Last Admin: 04/21/17 10:36 Dose: 100 mls/hr Levothyroxine Sodium (Synthroid) 25 mcg PO QAM@0600 [facility] Last Admin: 04/21/17 05:54 Dose: 25 mcg Losartan Potassium (Cozaar) 100 mg PO QDAY [facility] Last Admin: 04/21/17 10:39 Dose: 100 mg Magnesium Hydroxide (Milk Of Magnesia) 30 ml PO Q4H PRN PRN Reason: Constipation Metoclopramide HCl (Reglan) 5 mg PO Q6H PRN PRN Reason: Nausea And Vomiting Ondansetron HCl (Zofran) 4 mg IV Q8H PRN PRN Reason: N/V unrelieved by Reglan Promethazine HCl (Phenergan) 25 mg [place] Q6H PRN PRN Reason: Nausea And Vomiting Simvastatin (Zocor) 20 mg PO QHS [facility] Last Admin: 04/20/17 21:50 Dose: 20 mg Sodium Chloride (Sodium Chloride Flush Syringe 10 Ml) 10 ml IV PRN PRN PRN Reason: LINE FLUSH Exam - Constitutional Vitals: Temp Pulse Resp BP Pulse Ox 99.2 F 79 18 140/68 92 04/21/17 08:01 04/21/17 10:39 04/21/17 08:58 04/21/17 10:39 04/21/17 08:01 Results - Labs CBC & Chem 7: 04/19/17 04:35 04/19/17 04:35
--- NOTE | 2017-04-21 13:22 | Consultation ---
History of Present Illness - Reason for Consult Consult date: 04/21/17 mastoiditis Requesting physician: WILLIAN GAGNON - History of Present Illness 81 year old female with history of emphysema, hypertension, hypothyroidism admitted on 04/20/17 due to a week history of dizziness and a sensation of head spinning. Patient denies any recent headaches, ear pain, cold symptoms. Patient denies any fever, chills, nausea, vomiting. Patient reports that she's been falling down during the last 4 days. She denies any injury to her head. Denies any loss of consciousness. In the emergency room, initial temperature was 98, heart rate 70, blood pressure 202/85. Initial white count 7.6. Hemoglobin 11.7. Creatinine 0.4. Chest x-ray was drawn and showed negative for consolidation however she was found to have high abdominal hernia and his scoliosis. CT of the head was unremarkable. MRI which showed left temporal positive bowel 30 ventricle right moderate infarct as well as mild sinusitis and right mastoiditis. Microbiology: none Current Antimicrobials: Ceftriaxone 04/21 Previous Antimicrobials: Past History Past Medical History: hypertension, hypothyroidism Past Surgical History: No surgical history Social history: smoking (half pack per day), full code. denies: alcohol abuse, prescription drug abuse, IV drug use Family history: no significant family history Medications and Allergies Allergies Allergy/AdvReac Type Severity Reaction Status Date / Time No Known Allergies Allergy Verified 04/18/17 23:13 Home Medications Medication Instructions Recorded Confirmed Last Taken Type Amlodipine Besylate [Norvasc] 5 mg PO DAILY 04/18/17 04/18/17 Unknown History Levothyroxine [Synthroid] 25 mcg PO QAM 04/18/17 04/18/17 Unknown History Losartan Potassium 100 mg PO DAILY 04/18/17 04/18/17 Unknown History Active Meds: Active Medications Acetaminophen (Tylenol) 325 mg PO Q6H PRN PRN Reason: Pain, Mild (1-3) Albuterol/Ipratropium (Duoneb *Not For Prn Use*) 1 ampul IH Q6HRT [facility] Last Admin: 04/21/17 08:56 Dose: 1 ampul Amlodipine Besylate (Norvasc) 5 mg PO DAILY [facility] Last Admin: 04/21/17 10:38 Dose: 5 mg Bisacodyl (Dulcolax) 10 mg [place] QDAY PRN PRN Reason: Constipation Docusate Sodium (Colace) 100 mg PO BID [facility] Last Admin: 04/21/17 10:37 Dose: 100 mg Famotidine (Pepcid) 10 mg PO BID [facility] Last Admin: 04/21/17 10:37 Dose: 10 mg Heparin Sodium (Porcine) (Heparin) 5,000 unit SUB-Q Q8HR [facility] Last Admin: 04/21/17 05:53 Dose: 5,000 unit Ceftriaxone Sodium (Rocephin/Ns 1 Gm/50 Ml) 1 gm in 50 mls @ 100 mls/hr IV Q24HR [facility] PRN Reason: Protocol Last Admin: 04/21/17 10:36 Dose: 100 mls/hr Levothyroxine Sodium (Synthroid) 25 mcg PO QAM@0600 [facility] Last Admin: 04/21/17 05:54 Dose: 25 mcg Losartan Potassium (Cozaar) 100 mg PO QDAY [facility] Last Admin: 04/21/17 10:39 Dose: 100 mg Magnesium Hydroxide (Milk Of Magnesia) 30 ml PO Q4H PRN PRN Reason: Constipation Metoclopramide HCl (Reglan) 5 mg PO Q6H PRN PRN Reason: Nausea And Vomiting Ondansetron HCl (Zofran) 4 mg IV Q8H PRN PRN Reason: N/V unrelieved by Reglan Promethazine HCl (Phenergan) 25 mg [place] Q6H PRN PRN Reason: Nausea And Vomiting Simvastatin (Zocor) 20 mg PO QHS [facility] Last Admin: 04/20/17 21:50 Dose: 20 mg Sodium Chloride (Sodium Chloride Flush Syringe 10 Ml) 10 ml IV PRN PRN PRN Reason: LINE FLUSH Review of Systems ROS unobtainable: due to mental status All systems: negative (as per HPI) Physical Examination - Physical Exam Narrative exam: General appearance: Alert in NAD, conversant, debilitated Eyes: anicteric sclerae, moist conjunctivae; no lid-lag; PERRLA HENT: Atraumatic; oropharynx edentulous Neck: Trachea midline; supple, no thyromegaly or lymphadenopathy Lungs: CTA CV: rrr Abdomen: Soft, non-tender Extremities: No peripheral edema or extremity lymphadenopathy Skin: scattered skin tears/ecchymoses small/ Psych: Appropriate affect, alert and oriented to person, place and time. Neuro: alert and oriented x 3. Moving all extermities Lines: No CVL / PICC - Constitutional Vitals: Vital Signs Temp Pulse Resp BP Pulse Ox 99.2 F 79 18 140/68 92 04/21/17 08:01 04/21/17 10:39 04/21/17 08:58 04/21/17 10:39 04/21/17 08:01 Temperature -Last 24 Hours Temperature 99.2 F Temperature 99.8 F Temperature 100.3 F Results - Labs CBC & Chem 7: 04/19/17 04:35 04/19/17 04:35 Assessment and Plan Assessment: 1) Fever: not present on admission, temp 100.3 on 04/20. Unclear source. DDx. ? pneumonitis, ?mastoiditis, ?central from CVA 2) Right sided mastoiditis and mild sinusitis on MRI ? bacterial 3) Acute ischemic cerebral infarct: per neuro 4) Accelerated hypertension 5) Tobacco dependency Plan: -obtain blood cultures, UA and urine culture -repeat CXR -obtain procalcitonin, C-reactive protein (CRP) -stop ceftriaxone -start zosyn to cover Pseudomonas empirically in view of her age and mastoiditis I am off tomorrow, I will see her back on Sunday Thank you for your consultation, will follow up with you. Zelda Jones MD Infectious Diseases Specialist [facility] ([facility] M [phone] O [phone]
[2017-04-21 18:40] LABS: Bilirubin,Urine NEG (Negative); Blood,Urine NEG (Negative); Ketones,Urine NEG (Negative); Leukocyte Esterase,Urine NEG (Negative); Mucus,Urine FEW /HPF; Nitrite,Urine NEG (Negative); RBC,Urine < 1.0 /HPF (0.0-6.0)
[2017-04-21] MEDS: ZOCOR PO SCH (21:40)
[2017-04-22] MEDS: DUONEB *Not for PRN Use IH SCH ×4 (02:17→19:40)
[2017-04-22] MEDS: HEPARIN SUB-Q SCH ×3 (05:44→22:43)
[2017-04-22] MEDS: SYNTHROID PO SCH (05:45)
[2017-04-22 06:03] LABS: Hemoglobin 9.8 gm/dl (10.1-14.3); Mean Corpuscular HGB Conc 32 % (30-34); Mean Corpuscular Volume 81 fl (79-97); Platelet Count 334 K/mm3 (140-440); Red Blood Count 3.83 M/mm3 (3.65-5.03); Red Cell Distribution Width 18.5 % (13.2-15.2); White Blood Count 7.6 K/mm3 (4.5-11.0)
[2017-04-22 06:05] LABS: Mean Corpuscular Hemoglobin 26 pg (28-32)
[2017-04-22 06:11] LABS: Anion Gap 17 mmol/L; BUN/Creatinine Ratio 22; Blood Urea Nitrogen 11 mg/dL (7-17); Calcium 8.7 mg/dL (8.4-10.2); Carbon Dioxide 26 mmol/L (22-30); Chloride 101.7 mmol/L (98-107); Glucose 100 mg/dL (65-100); Potassium 3.2 mmol/L (3.6-5.0); Sodium 141 mmol/L (137-145)
[2017-04-22] MEDS: PEPCID PO SCH ×3 (10:16→22:42)
[2017-04-22] MEDS: NORVASC PO SCH (10:16)
[2017-04-22] MEDS: COLACE PO SCH ×2 (10:16→22:42)
[2017-04-22] MEDS: ROCEPHIN/NS 1 GM/50 ML 1 GM/50 ML BAG IV SCH (10:17)
[2017-04-22] MEDS: COZAAR PO SCH (10:17)
[2017-04-22] MEDS ORDERED: K-DUR PO ONE (12:39)
--- NOTE | 2017-04-22 12:43 | Progress Note ---
Assessment and Plan Disposition Plan: pending rehabilitation placement - Patient Problems (1) CVA (cerebral vascular accident) Current Visit: Yes Status: Suspected Qualifiers: CVA mechanism: C Precerebral and cerebral artery: P Laterality of affected vessel: left Plan to address problem: MRI showed left temporoparietal infarction Patient is on aspirin and statin (2) Generalized weakness Current Visit: Yes Status: Acute Plan to address problem: PT/ OT consulted (3) Malnutrition Current Visit: Yes Status: Acute Qualifiers: Malnutrition type: M Protein-calorie malnutrition severity: P Plan to address problem: Nutrition consult placed (4) Hypertension Current Visit: Yes Status: Acute Qualifiers: Hypertension type: H Plan to address problem: Continue current medications (5) Mastoiditis Current Visit: Yes Status: Acute Qualifiers: Laterality: L Plan to address problem: Subjective the patient spike in fever and ID consulted and recommended IV Zosyn for mastoiditis to cover possible pseudomonas. (6) Vertigo Current Visit: Yes Status: Acute (7) DVT prophylaxis Current Visit: Yes Status: Acute Plan to address problem: heparin (8) Emphysema of lung Current Visit: Yes Status: Chronic Qualifiers: Emphysema type: E Plan to address problem: Breathing treatment albuterol (9) Smoking 1/2 pack a day or less Current Visit: Yes Status: Acute Plan to address problem: Counselled about cessation >10 minutes Patient doesn't need nicotine patch History Interval history: Patient was seen and evaluated this morning, patient didn't have any complaints. Hospitalist Physical - Physical exam Narrative exam: Not in cardiopulmonary distress. The patient appeared emaciated. Vital signs as documented. Head exam is unremarkable. No scleral icterus . Neck is without jugular venous distension, thyromegaly, or carotid bruits. Lungs are clear to auscultation. Cardiac exam reveals regular rate and Rhythm. First and second heart sounds normal. No murmurs, rubs or gallops. Abdominal exam reveals normal bowel sounds, no masses, no organomegaly and no aortic enlargement. Extremities are nonedematous and both femoral and pedal pulses are normal. 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 No focal weakness. - Constitutional Vitals: Temp Pulse Resp BP Pulse Ox 98.4 F 64 20 107/65 94 04/22/17 08:05 04/22/17 10:17 04/22/17 08:30 04/22/17 08:05 04/22/17 08:05 General appearance: Present: no acute distress, well-nourished Results - Labs CBC & Chem 7: 04/22/17 05:27 04/22/17 05:27 Labs: Laboratory Last Values WBC 7.6 K/mm3 (4.5-11.0) 04/22/17 05:27 RBC 3.83 M/mm3 (3.65-5.03) 04/22/17 05:27 Hgb 9.8 gm/dl (10.1-14.3) L 04/22/17 05:27 Hct 31.0 % (30.3-42.9) 04/22/17 05:27 MCV 81 fl (79-97) 04/22/17 05:27 MCH 26 pg (28-32) L 04/22/17 05:27 MCHC 32 % (30-34) 04/22/17 05:27 RDW 18.5 % (13.2-15.2) H 04/22/17 05:27 Plt Count 334 K/mm3 (140-440) 04/22/17 05:27 Lymph % (Auto) 22.0 % (13.4-35.0) 04/19/17 04:35 [place] % (Auto) 11.3 % (0.0-7.3) H 04/19/17 04:35 Eos % (Auto) 1.7 % (0.0-4.3) 04/19/17 04:35 Baso % (Auto) 1.1 % (0.0-1.8) 04/19/17 04:35 Lymph # 1.4 K/mm3 (1.2-5.4) 04/19/17 04:35 [place] # 0.7 K/mm3 (0.0-0.8) 04/19/17 04:35 Eos # 0.1 K/mm3 (0.0-0.4) 04/19/17 04:35 Baso # 0.1 K/mm3 (0.0-0.1) 04/19/17 04:35 Seg Neutrophils % 63.9 % (40.0-70.0) 04/19/17 04:35 Seg Neutrophils # 3.9 K/mm3 (1.8-7.7) 04/19/17 04:35 Sodium 141 mmol/L (137-145) 04/22/17 05:27 Potassium 3.2 mmol/L (3.6-5.0) L 04/22/17 05:27 Chloride 101.7 mmol/L (98-107) 04/22/17 05:27 Carbon Dioxide 26 mmol/L (22-30) 04/22/17 05:27 Anion Gap 17 mmol/L 04/22/17 05:27 BUN 11 mg/dL (7-17) 04/22/17 05:27 Creatinine 0.5 mg/dL (0.7-1.2) L 04/22/17 05:27 Estimated GFR > 60 ml/min 04/22/17 05:27 BUN/Creatinine Ratio 22 % 04/22/17 05:27 Glucose 100 mg/dL (65-100) 04/22/17 05:27 Calcium 8.7 mg/dL (8.4-10.2) 04/22/17 05:27 Troponin T < 0.010 ng/mL (0.00-0.029) 04/18/17 19:21 C-Reactive Protein 1.40 mg/dL (0.00-1.30) H 04/21/17 13:38 Triglycerides 167 mg/dL (2-149) H 04/19/17 04:35 Cholesterol 156 mg/dL (50-199) 04/19/17 04:35 LDL Cholesterol Direct 81 mg/dL (50-130) 04/19/17 04:35 HDL Cholesterol 42 mg/dL (40-59) 04/19/17 04:35 Cholesterol/HDL Ratio 3.71 % 04/19/17 04:35 Urine Color Yellow (Yellow) 04/21/17 18:20 Urine Turbidity Clear (Clear) 04/21/17 18:20 Urine pH 6.0 (5.0-7.0) 04/21/17 18:20 Ur Specific [place] 1.021 (1.003-1.030) 04/21/17 18:20 Urine Protein 30 mg/dl mg/dL (Negative) 04/21/17 18:20 Urine Glucose (UA) Neg mg/dL (Negative) 04/21/17 18:20 Urine Ketones Neg mg/dL (Negative) 04/21/17 18:20 Urine Blood Neg (Negative) 04/21/17 18:20 Urine Nitrite Neg (Negative) 04/21/17 18:20 Urine Bilirubin Neg (Negative) 04/21/17 18:20 Urine Urobilinogen 4.0 mg/dL (<2.0) 04/21/17 18:20 Ur Leukocyte Esterase Neg (Negative) 04/21/17 18:20 Urine WBC (Auto) 1.0 /HPF (0.0-6.0) 04/21/17 18:20 Urine RBC (Auto) < 1.0 /HPF (0.0-6.0) 04/21/17 18:20 U Epithel Cells (Auto) 1.0 /HPF (0-13.0) 04/21/17 18:20 Urine Mucus Few /HPF 04/21/17 18:20
[2017-04-22] MEDS: ZOSYN/NS 4.5GM/100ML 4.5 GM/100 ML VIAL IV SCH ×2 (14:53→22:43)
[2017-04-22] MEDS: ZOCOR PO SCH (22:42)
[2017-04-23] MEDS: DUONEB *Not for PRN Use IH SCH ×4 (01:48→20:30)
[2017-04-23] MEDS: SYNTHROID PO SCH (05:49)
[2017-04-23] MEDS: HEPARIN SUB-Q SCH ×3 (05:49→22:57)
[2017-04-23] MEDS: ZOSYN/NS 4.5GM/100ML 4.5 GM/100 ML VIAL IV SCH ×2 (05:50→13:35)
--- NOTE | 2017-04-23 08:06 | Progress Note ---
Assessment and Plan Disposition Plan: Pending rehab placement - Patient Problems (1) CVA (cerebral vascular accident) Current Visit: Yes Status: Suspected Qualifiers: CVA mechanism: C Precerebral and cerebral artery: P Laterality of affected vessel: left Plan to address problem: MRI showed left temporoparietal infarction Patient is on aspirin and statin (2) Generalized weakness Current Visit: Yes Status: Acute Plan to address problem: PT/ OT consulted (3) Malnutrition Current Visit: Yes Status: Acute Qualifiers: Malnutrition type: M Protein-calorie malnutrition severity: P Plan to address problem: Nutrition consult placed (4) Hypertension Current Visit: Yes Status: Acute Qualifiers: Hypertension type: H Plan to address problem: Continue current medications (5) Mastoiditis Current Visit: Yes Status: Acute Qualifiers: Laterality: L Plan to address problem: Subjective the patient spike in fever and ID consulted and recommended IV Zosyn for mastoiditis to cover possible pseudomonas. (6) Vertigo Current Visit: Yes Status: Acute Plan to address problem: Supportive care, treat mastoiditis PT (7) DVT prophylaxis Current Visit: Yes Status: Acute (8) Emphysema of lung Current Visit: Yes Status: Chronic Qualifiers: Emphysema type: E Plan to address problem: Breathing treatment Duonebs (9) Smoking 1/2 pack a day or less Current Visit: Yes Status: Acute Plan to address problem: Counselled about cessation >10 minutes Patient doesn't need nicotine patch History Interval history: Patient was seen and evaluated this morning, patient didn't have any complaints. Hospitalist Physical - Physical exam Narrative exam: Not in cardiopulmonary distress. The patient appeared emaciated. Vital signs as documented. Head exam is unremarkable. No scleral icterus . Neck is without jugular venous distension, thyromegaly, or carotid bruits. Lungs are clear to auscultation. Cardiac exam reveals regular rate and Rhythm. First and second heart sounds normal. No murmurs, rubs or gallops. Abdominal exam reveals normal bowel sounds, no masses, no organomegaly and no aortic enlargement. Extremities are nonedematous and both femoral and pedal pulses are normal. [employer]: Alert and oriented 3. No focal weakness. - Constitutional Vitals: Temp Pulse Resp BP Pulse Ox 98.4 F 62 18 145/68 94 04/23/17 04:00 04/23/17 04:00 04/23/17 04:00 04/23/17 04:00 04/23/17 04:00 General appearance: Present: no acute distress, well-nourished Results - Labs CBC & Chem 7: 04/22/17 05:27 04/23/17 10:12 Labs: Laboratory Last Values WBC 7.6 K/mm3 (4.5-11.0) 04/22/17 05:27 RBC 3.83 M/mm3 (3.65-5.03) 04/22/17 05:27 Hgb 9.8 gm/dl (10.1-14.3) L 04/22/17 05:27 Hct 31.0 % (30.3-42.9) 04/22/17 05:27 MCV 81 fl (79-97) 04/22/17 05:27 MCH 26 pg (28-32) L 04/22/17 05:27 MCHC 32 % (30-34) 04/22/17 05:27 RDW 18.5 % (13.2-15.2) H 04/22/17 05:27 Plt Count 334 K/mm3 (140-440) 04/22/17 05:27 Lymph % (Auto) 22.0 % (13.4-35.0) 04/19/17 04:35 [place] % (Auto) 11.3 % (0.0-7.3) H 04/19/17 04:35 Eos % (Auto) 1.7 % (0.0-4.3) 04/19/17 04:35 Baso % (Auto) 1.1 % (0.0-1.8) 04/19/17 04:35 Lymph # 1.4 K/mm3 (1.2-5.4) 04/19/17 04:35 [place] # 0.7 K/mm3 (0.0-0.8) 04/19/17 04:35 Eos # 0.1 K/mm3 (0.0-0.4) 04/19/17 04:35 Baso # 0.1 K/mm3 (0.0-0.1) 04/19/17 04:35 Seg Neutrophils % 63.9 % (40.0-70.0) 04/19/17 04:35 Seg Neutrophils # 3.9 K/mm3 (1.8-7.7) 04/19/17 04:35 Sodium 141 mmol/L (137-145) 04/22/17 05:27 Potassium 3.2 mmol/L (3.6-5.0) L 04/22/17 05:27 Chloride 101.7 mmol/L (98-107) 04/22/17 05:27 Carbon Dioxide 26 mmol/L (22-30) 04/22/17 05:27 Anion Gap 17 mmol/L 04/22/17 05:27 BUN 11 mg/dL (7-17) 04/22/17 05:27 Creatinine 0.5 mg/dL (0.7-1.2) L 04/22/17 05:27 Estimated GFR > 60 ml/min 04/22/17 05:27 BUN/Creatinine Ratio 22 % 04/22/17 05:27 Glucose 100 mg/dL (65-100) 04/22/17 05:27 Calcium 8.7 mg/dL (8.4-10.2) 04/22/17 05:27 Troponin T < 0.010 ng/mL (0.00-0.029) 04/18/17 19:21 C-Reactive Protein 1.40 mg/dL (0.00-1.30) H 04/21/17 13:38 Triglycerides 167 mg/dL (2-149) H 04/19/17 04:35 Cholesterol 156 mg/dL (50-199) 04/19/17 04:35 LDL Cholesterol Direct 81 mg/dL (50-130) 04/19/17 04:35 HDL Cholesterol 42 mg/dL (40-59) 04/19/17 04:35 Cholesterol/HDL Ratio 3.71 % 04/19/17 04:35 Urine Color Yellow (Yellow) 04/21/17 18:20 Urine Turbidity Clear (Clear) 04/21/17 18:20 Urine pH 6.0 (5.0-7.0) 04/21/17 18:20 Ur Specific [place] 1.021 (1.003-1.030) 04/21/17 18:20 Urine Protein 30 mg/dl mg/dL (Negative) 04/21/17 18:20 Urine Glucose (UA) Neg mg/dL (Negative) 04/21/17 18:20 Urine Ketones Neg mg/dL (Negative) 04/21/17 18:20 Urine Blood Neg (Negative) 04/21/17 18:20 Urine Nitrite Neg (Negative) 04/21/17 18:20 Urine Bilirubin Neg (Negative) 04/21/17 18:20 Urine Urobilinogen 4.0 mg/dL (<2.0) 04/21/17 18:20 Ur Leukocyte Esterase Neg (Negative) 04/21/17 18:20 Urine WBC (Auto) 1.0 /HPF (0.0-6.0) 04/21/17 18:20 Urine RBC (Auto) < 1.0 /HPF (0.0-6.0) 04/21/17 18:20 U Epithel Cells (Auto) 1.0 /HPF (0-13.0) 04/21/17 18:20 Urine Mucus Few /HPF 04/21/17 18:20
--- NOTE | 2017-04-23 09:28 | XRay Report ---
FINAL REPORT EXAM: XR CHEST ROUTINE 2V HISTORY: eval for pneumonia TECHNIQUE: Chest, AP and lateral PRIORS: None. FINDINGS: There is a moderate hiatal hernia. There is mild scoliosis. Aorta is tortuous. There is no infiltrate or pleural effusion seen. There is minimal subsegmental atelectasis at right lung base. There is no pneumothorax seen. IMPRESSION: Hiatal hernia. Otherwise no significant abnormality seen.
[2017-04-23] MEDS: BABY ASPIRIN PO SCH (10:03)
[2017-04-23] MEDS: COZAAR PO SCH (10:03)
[2017-04-23] MEDS: COLACE PO SCH ×2 (10:03→22:57)
[2017-04-23] MEDS: PEPCID PO SCH ×2 (10:03→22:58)
[2017-04-23] MEDS: NORVASC PO SCH (10:03)
[2017-04-23 10:42] LABS: Anion Gap 16 mmol/L; BUN/Creatinine Ratio 22; Blood Urea Nitrogen 11 mg/dL (7-17); Calcium 8.6 mg/dL (8.4-10.2); Carbon Dioxide 25 mmol/L (22-30); Chloride 103.4 mmol/L (98-107); Glucose 95 mg/dL (65-100); Potassium 3.9 mmol/L (3.6-5.0); Sodium 140 mmol/L (137-145)
--- NOTE | 2017-04-23 14:12 | Progress Note ---
Assessment and Plan Assessment: 1) Fever: resolved. Unclear source. DDx. ?mastoiditis/sinusitis , ?central from CVA. CRP=1.4 2) Right sided mastoiditis and mild sinusitis on MRI 3) Acute ischemic cerebral infarct: per neuro 4) Accelerated hypertension 5) Tobacco dependency Plan: -stop zosyn -start levaquin 750 mg PO qday total 10 days from 04/21 until 05/04 to cover mastoiditis/sinusitis I am signing off Thank you Dr Hernandez for your consultation, will follow up with you. Zelda Jones MD Infectious Diseases Specialist [facility] M [phone] O [phone] Subjective Date of service: 04/23/17 Principal diagnosis: generalized weakness, shortness of breath, malnutrition, vertigo Interval history: Feels good, denies headaches, ear pain on the left better. No fever. Microbiology: Blood cx 04/21 ngtd Urine cx 04/21 10-100K mixed Current Antimicrobials: zosyn 04/21 Previous Antimicrobials: Ceftriaxone 04/21 Objective - Exam Narrative Exam: General appearance: Alert in NAD, conversant, debilitated Eyes: anicteric sclerae, moist conjunctivae; no lid-lag; PERRLA HENT: Atraumatic; oropharynx edentulous Neck: Trachea midline; supple, no thyromegaly or lymphadenopathy Lungs: CTA CV: rrr Abdomen: Soft, non-tender Extremities: No peripheral edema or extremity lymphadenopathy Skin: scattered skin tears/ecchymoses small/ Psych: Appropriate affect, alert and oriented to person, place and time. Neuro: alert and oriented x 3. Moving all extermities Lines: No CVL / PICC - Constitutional Vitals: Vital Signs Temp Pulse Resp BP Pulse Ox 97.7 F 80 18 133/70 93 04/23/17 08:00 04/23/17 10:00 04/23/17 08:10 04/23/17 08:00 04/23/17 08:00 Temperature -Last 24 Hours Temperature 97.7 F Temperature 98.4 F Temperature 98.6 F Temperature 99.1 F Temperature 99.0 F - Labs CBC & Chem 7: 04/22/17 05:27 04/23/17 10:12 Labs: Abnormal lab results 04/23/17 Range/Units 10:12 Creatinine 0.5 L (0.7-1.2) mg/dL
[2017-04-23] MEDS: LEVAQUIN PO SCH (15:43)
[2017-04-23] MEDS ORDERED: PROVENTIL IH PRN (20:55)
[2017-04-23] MEDS ORDERED: ZOCOR PO SCH (22:00)
[2017-04-24] MEDS: HEPARIN SUB-Q SCH ×2 (06:18→14:06)
[2017-04-24] MEDS: SYNTHROID PO SCH (06:19)
[2017-04-24] MEDS: DUONEB *Not for PRN Use IH SCH ×2 (09:02→14:01)
[2017-04-24] MEDS: BABY ASPIRIN PO SCH (09:36)
[2017-04-24] MEDS: COLACE PO SCH (09:36)
[2017-04-24] MEDS: LEVAQUIN PO SCH (09:36)
[2017-04-24] MEDS: PEPCID PO SCH (09:36)
[2017-04-24] MEDS: COZAAR PO SCH (09:37)
[2017-04-24] MEDS: NORVASC PO SCH (09:37)
[2017-04-24 15:54] VITALS: BP 162/67
--- NOTE | 2017-04-24 17:27 | Discharge Summary ---
Providers - Providers Date of Admission: 04/18/17 23:06 Date of discharge: 04/24/17 Attending physician: DAVID BOWDEN 04/20/17 14:13 Occupational Therapy Evaluate and Treat [CONS] Urgent Comment: Reason For Exam: cva 04/21/17 07:15 Consult to Physician [CONS] Routine Consulting Provider: MUKUND BULLOCK Reason For Exam: sinusitis, mastoditis causing low grade temp? Place consult to:: Hank Notified:: yes Phone number called:: [phone] If yes, spoke with:: Dr Mckinney Time called:: 09:30 Primary care physician: ELE FLORES Hospitalization Condition: Fair Disposition: DC/[place]-06 HOME UNDER HOME [facility] Core Measure Documentation - Palliative Care Palliative Care/ Comfort Measures: Not Applicable - Core Measures Any of the following diagnoses?: none Exam - Constitutional Vitals: Temp Pulse Resp BP Pulse Ox 98.6 F 88 22 162/67 95 04/24/17 15:10 04/24/17 15:10 04/24/17 15:10 04/24/17 15:10 04/24/17 15:10 General appearance: Present: no acute distress, well-nourished - EENT Eyes: Present: PERRL ENT: hearing intact, clear oral mucosa - Neck Neck: Present: supple, normal ROM - Respiratory Respiratory effort: normal Respiratory: bilateral: CTA - Cardiovascular Heart Sounds: Present: S1 & S2. Absent: rub, click - Extremities Extremities: pulses symmetrical, No edema Peripheral Pulses: within normal limits - Abdominal General gastrointestinal: Present: soft, non-tender, non-distended, normal bowel sounds Female genitourinary: Present: normal - Integumentary Integumentary: Present: clear, warm, dry - Musculoskeletal Musculoskeletal: gait normal, strength equal bilaterally - Psychiatric Psychiatric: appropriate mood/affect, intact judgment & insight - Neurologic Neurologic: CNII-XII intact, moves all extremities Plan Activity: no restrictions Diet: low salt Follow up with: SUSAN MARISCAL MD [Referring] - 3-5 Days PERICO LOERA MD [Staff Physician] - 7 Days
== END 2017-04-24 18:30 | disposition home health service (06) | DRG 65 ==
LOC: ED 18:46 → CC2 23:06 → 3A 04-19 11:09
PROVIDERS: ADMIT Internal Medicine; ATTEND Internal Medicine
DX: I63.9 Cerebral infarction, unspecified (principal); E44.0 Moderate protein-calorie malnutrition; H70.003 Acute mastoiditis without complications, bilateral; Z68.1 Body mass index [BMI] 19.9 or less, adult; I10 Essential (primary) hypertension; J32.9 Chronic sinusitis, unspecified; F17.210 Nicotine dependence, cigarettes, uncomplicated; J43.9 Emphysema, unspecified; E03.9 Hypothyroidism, unspecified; Z79.899 Other long term (current) drug therapy; Z71.6 Tobacco abuse counseling
CPT/HCPCS: 36415; 70450; 70544; 70551; 71020; 80048; 80061; 81001; 84484; 85025; 85027; 86140; 87040; 87086; 90686; 90732; 93005; 93010; 93306; 93880; 94640; 99406; G8978-GP; G8979-GP; J0696; J1644; J2543; J7040